=== PATIENT | female | born 1995 | race Two or more races ===

== ENCOUNTER 2020-01-20 13:17 | Emergency (ER) | payer OTHER ==
[2020-01-20 14:05] VITALS: BMI 35.0
--- NOTE | 2020-01-20 14:08 | PDOC ---
Rapid Medical Evaluation Time Seen by Provider: 01/20/20 13:58 Medical Evaluation: 01/20/20 14:01 This patient had a rapid evaluation in triage cc: chest pain x 2-3 days HPI: Patient reports G1Po, 25 weeks with mid chest pain that pierces through to back also reports itching and rash intermittently. Also reports shortness of breath PE: appears winded, lungs clear bilaterally heart regular rate, s1s2 ext: small swelling in ankles Orders: ekg This patient will proceed to main ed for further evaluation Discharge Disposition - Diagnosis Chest pain Qualifiers: Chest pain type: chest pain on breathing Qualified Code(s): R07.1 - Chest pain on breathing; R07.81 - Pleurodynia Qualifiers: Weeks of gestation: 26 weeks Qualified Code(s): Z3A.26 - 26 weeks gestation of - Referrals - Patient Instructions - Post Discharge Activity
--- NOTE | 2020-01-20 14:23 | PDOC ---
History of Present Illness - General Chief Complaint: Chest Pain Stated Complaint: CHEST PAIN/25 WKS PRG Time Seen by Provider: 01/20/20 13:58 History Source: Patient - History of Present Illness Initial Comments: 01/20/20 15:13 Ms. Gonzalez is a 24 y/o woman at 25 weeks gestation w/hx hypothyroidism p/w several days of intermittent squeezing chest pain and shortness of breath. She denies prior similar episodes or previous DVTs or PEs. She reports that her symptoms began approx 3-4 days ago and occur in brief intermittent episodes lasting 1-2 minutes. During them she describes squeezing chest pain that radiates to her back. 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 She has already had confirmatory US of the . She denies any change in pain, or onset of pain, with exertion. She denies any nausea, vomiting, dyspnea, weakness, dysuria , hematuria. Past History - Past Medical History Allergies/Adverse Reactions: Allergies Allergy/AdvReac Type Severity Reaction Status Date / Time No Known Allergies Allergy Verified 01/20/20 14:02 - Psycho Social/Smoking Cessation Hx Smoking History: Never smoked Information on smoking cessation initiated: No Hx Alcohol Use: No Drug/Substance Use Hx: No Review of Systems - Review of Systems Able to Perform ROS?: Yes Comments:: 01/20/20 15:17 ROS: GENERAL/CONSTITUTIONAL: No fever or chills. No weakness. HEAD, EYES, EARS, NOSE AND THROAT: No change in vision. No ear pain or discharge. No sore throat. CARDIOVASCULAR: No chest pain or shortness of breath RESPIRATORY: No cough, wheezing, or hemoptysis. GASTROINTESTINAL: No nausea, vomiting, diarrhea or constipation. GENITOURINARY: No dysuria, frequency, or change in urination. MUSCULOSKELETAL: No joint or muscle swelling or pain. No neck or back pain. SKIN: No rash NEUROLOGIC: No headache, vertigo, loss of consciousness, or change in strength/ sensation. ENDOCRINE: No increased thirst. No abnormal weight change HEMATOLOGIC/LYMPHATIC: No anemia, easy bleeding, or history of blood clots. ALLERGIC/IMMUNOLOGIC: No hives or skin allergy. *Physical Exam - Vital Signs Last Vital Signs Temp Pulse Resp BP Pulse Ox 97.8 F 93 H 17 103/61 99 01/20/20 14:02 01/20/20 14:02 01/20/20 14:02 01/20/20 14:02 01/20/20 14:02 - Physical Exam 01/20/20 15:17 PE: GENERAL: Awake, alert, and fully oriented, in no acute distress HEAD: No signs of trauma, normocephalic, atraumatic EYES: PERRLA, EOMI, sclera anicteric, conjunctiva clear ENT: Auricles normal inspection, hearing grossly normal, nares patent, oropharynx clear without exudates. Moist mucosa NECK: Normal ROM, supple, no lymphadenopathy, JVD, or masses LUNGS: No distress, speaks full sentences, clear to auscultation bilaterally HEART: Regular rate and rhythm, normal S1 and S2, no murmurs, rubs or gallops, peripheral pulses normal and equal bilaterally. ABDOMEN: Soft, nontender, normoactive bowel sounds. No guarding, no rebound. No masses EXTREMITIES : Normal inspection, Normal range of motion, no edema. No clubbing or cyanosis NEUROLOGICAL: Cranial nerves II through XII grossly intact. Normal speech, normal gait, no focal sensorimotor deficits SKIN: Warm, Dry, normal turgor, no rashes or lesions noted Heart Score/ECG Review - History History: Slightly suspicious - Electrocardiogram EKG: Normal - Age Age: </= 45 - Risk Factors Based on the list above the patient has:: No risk factors known - Troponin Troponin: </= normal limit - Score Heart Score - Total: 0 ED Treatment Course - LABORATORY CBC & Chemistry Diagram: 01/20/20 15:00 01/20/20 15:00 Medical Decision Making - Medical Decision Making 01/20/20 15:18 24F at 25 weeks gestation by US w/hx hypothyroidism p/w several days intermittent chest pain. Ddx includes ACS, although pain lasting several days, and not associated with exertion atypical. PE unlikely (PERC negative). MSK pain possible. Plan: CBC CMP EKG CXR Lipase Cardiac profile UA Urine culture Beta hcg quant Dispo: Likely discharge 01/20/20 15:50 CBC - wnl UA - negative CMP, hcg quant pending 01/20/20 16:25 CMP - wnl Hcg quant - 4129 Plan for discharge to supervisor [employer] for further evaluation of , given lower than expected hcg quant for 25 weeks gestation. Discharge - Discharge Information Problems reviewed: Yes Clinical Impression/Diagnosis: Chest pain Qualifiers: Chest pain type: chest pain on breathing Qualified Code(s): R07.1 - Chest pain on breathing Qualifiers: Weeks of gestation: 26 weeks Qualified Code(s): Z3A.26 - 26 weeks gestation of Condition: Stable Disposition: HOME - Admission No - Follow up/Referral - Patient Discharge Instructions Patient Printed Discharge Instructions: DI for Atypical Chest Pain Additional Instructions: You were seen in the ER for chest pain. Your bloodwork was normal, including your liver function. Please be sure to follow up with your supervisor framing mill as soon as possible, in the next 2-3 days. Follow up with your primary care physician as soon as possible as well, in the next 7 days. Return to the ER if you develop weakness, difficulty breathing, high fevers. - Post Discharge Activity
--- NOTE | 2020-01-20 15:04 | PDOC ---
*Physical Exam - Vital Signs Last Vital Signs Temp Pulse Resp BP Pulse Ox 97.8 F 93 H 17 103/61 98 01/20/20 14:02 01/20/20 14:02 01/20/20 14:02 01/20/20 14:02 01/20/20 14:34 Heart Score/ECG Review - ECG Impressions Comment:: 01/20/20 15:33 HR 75, NSR, no KAITLIN/STD/TWI ED Treatment Course - LABORATORY CBC & Chemistry Diagram: 01/20/20 15:00 01/20/20 15:00 Medical Decision Making - Medical Decision Making 01/20/20 15:03 24 y/o @ self-reported 25 weeks gestation with 3-4 days of chest pain Pain started suddenly while sitting and is sharp/squeezing, intermittent lasting 10-15 seconds, occurring both at night waking patient from sleep and during the day. No associated shortness of breath, lower extremity swelling palpitations. VS unremarkable No murmur on PE PERC Negative EKG with no acute ischemic change as documented in EKG section of EMR Will r/o ACS w/Troponin x1, d/c to OB 01/20/20 17:13 Troponin (-) x1 Other labs unremarkable including LFT's - though low clinical suspicion for pre- eclamptic picture D/c to OB Discharge - Discharge Information Problems reviewed: Yes Clinical Impression/Diagnosis: Chest pain Qualifiers: Chest pain type: chest pain on breathing Qualified Code(s): R07.1 - Chest pain on breathing Qualifiers: Weeks of gestation: 26 weeks Qualified Code(s): Z3A.26 - 26 weeks gestation of Condition: Stable Disposition: HOME - Admission No - Follow up/Referral - Patient Discharge Instructions Patient Printed Discharge Instructions: DI for Atypical Chest Pain Additional Instructions: You were seen in the ER for chest pain. Your bloodwork was normal, including your liver function. 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 Follow up with your primary care physician as soon as possible as well, in the next 7 days. Return to the ER if you develop weakness, difficulty breathing, high fevers. - Post Discharge Activity
[2020-01-20 15:29] LABS: BASO % 0.9 % (0-2.0); EOS % 1.5 % (0-4.5); HEMATOCRIT 32.6 % (32.4-45.2); HEMOGLOBIN 11.3 GM/dL (10.7-15.3); LYMPH % 20.7 % (8-40); MCH 30.5 pg (25.7-33.7); MCHC 34.6 g/dl (32.0-36.0); MEAN CELL VOLUME 87.9 fl (80-96); MEAN PLT VOLUME 8.9 fl (7.5-11.1); MONO % 6.6 % (3.8-10.2); NEUT % 70.3 % (42.8-82.8); PLATELET COUNT 219 K/MM3 (134-434); RBC 3.71 M/mm3 (3.60-5.2); RDW 15.4 % (11.6-15.6); WHITE BLOOD COUNT 9.5 K/mm3 (4.0-10.0)
[2020-01-20 15:37] LABS: EPI CELLS 3.7 /HPF (0-5/HPF); HYALINE CASTS 0 /lpf (0-8); URINE APPEARANCE CLEAR; URINE BACTERIA 117.3 /hpf (NEGATIVE); URINE BILIRUBIN NEGATIVE (NEGATIVE); URINE COLOR YELLOW; URINE GLUCOSE (UA) NEGATIVE (NEGATIVE); URINE KETONE NEGATIVE (NEGATIVE); URINE LEUK ESTERASE TRACE (NEGATIVE); URINE NITRITE NEGATIVE (NEGATIVE); URINE PROTEIN NEGATIVE (NEGATIVE); URINE RBC 1 /hpf (0-4); URINE UROBILINOGEN 0.2 mg/dL (0.2-1.0); URINE WBC 4 /hpf (0-5)
[2020-01-20 16:08] LABS: ALK PHOS 51 U/L (45-117); BILIRUBIN,TOTAL 0.5 mg/dL (0.2-1); BLOOD UREA NITROGEN 6.3 mg/dL (7-18); CALCIUM 8.5 mg/dL (8.5-10.1); CHLORIDE 106 mmol/L (98-107); CO2 22 mmol/L (21-32); CREATININE 0.5 mg/dL (0.55-1.3); GLUCOSE,RANDOM 76 mg/dL (74-106); LIPASE 114 U/L (73-393); SGPT/ALT 24 U/L (13-61); SODIUM 137 mmol/L (136-145)
--- NOTE | 2020-01-20 16:14 | PDOC ---
Attending Attestation - Resident Resident Name: Darrell Duenas - HPI HPI: 01/20/20 16:03 Pt presents to the ED complaining of a two day history of intermittent chest pain without shortness of breath. PAtient is 25 weeks . currently chest pain free. Denies fever or cough. - Physicial Exam PE: 01/20/20 16:14 Agree with resident exam. PAtient is well appearing and in no acute distress. Lungs are clear. CV: rrr no m/r/g. Abdomen: gravid, non tender non distended. - Medical Decision Making 01/20/20 16:15 Pt presents to the eD complaining of intermittent chest pain. PERC negative. EKG is normal and patient is extremely low risk for cardiac disease. Will check labs and cardiac enzymes, likely discharge home if negative.
[2020-01-20 16:16] LABS: ANION GAP 9 MMOL/L (8-16); POTASSIUM 4.4 mmol/L (3.5-5.1); SGOT/AST 25 U/L (15-37)
[2020-01-20 18:48] VITALS: BP 100/66; PULSE 77; TEMP 98.4
--- NOTE | 2020-01-20 19:31 | CONSULT ---
Past Medical History, Laborist - Primary Care Physician PCP:: Rowena Baez - Admission Chief Complaint: chest pain. pruritus History of Present Illness: Patient came to the ED with c/o chest pain.She is 25 weeks . Full W/U in ED w chest xray, EKG, treponine. Totally neg. Chest pain is worst at night. Most likely reflux. Skin pruritus - mild. History Source: Patient, Medical Record Limitations to Obtaining History: No Limitations - Past Medical History HOOP RIVETER: Denies/None, Syncope Pulmonary: Denies/None Gastrointestinal: Denies/None Hepatobiliary: Denies/None Renal/: Denies/None Reproductive: Denies/None ...: 1 ...Para: 0 ...Term: 0 ...: 0 ...Spon : 0 ...Induced : 0 ...LMP: 07/28/19 ... Weeks Gestation by Dates: 25.1 ...EDC by Dates: 05/03/20 Heme/Onc: Denies/None Infectious Disease: Denies/None Musculoskeletal: Denies/None Rheumatology: Denies/None ENT: Denies/None Endocrine: Denies/None Dermatology: Denies/None - Past Surgical History Past Surgical History: Yes: None - Smoking History Smoking history: Never smoked - Alcohol/Substance Use Hx Alcohol Use: No Review of Systems - Review of Systems Constitutional: reports: No Symptoms Eyes: reports: No Symptoms HENT: reports: No Symptoms Neck: reports: No Symptoms Cardiovascular: reports: No Symptoms Respiratory: reports: No Symptoms Gastrointestinal: reports: No Symptoms Genitourinary: reports: No Symptoms Breasts: reports: No Symptoms Reported Musculoskeletal: reports: No Symptoms Integumentary: reports: No Symptoms Neurological: reports: No Symptoms Endocrine: reports: No Symptoms Hematology/Lymphatic: reports: No Symptoms Psychiatric: reports: No Symptoms Physical Exam - Maternity Vital Signs: Vital Signs Temperature 98.4 F 01/20/20 17:17 Pulse Rate 77 01/20/20 17:17 Respiratory Rate 18 01/20/20 17:17 Blood Pressure 100/66 01/20/20 17:17 O2 Sat by Pulse Oximetry (%) 98 01/20/20 16:48 Constitutional: Yes: Well Nourished, No Distress, Calm Eyes: Yes: WNL, Conjunctiva Clear, EOM Intact HENT: Yes: WNL, Atraumatic, Normocephalic Neck: Yes: WNL, Supple, Trachea Midline Cardiovascular: Yes: WNL, Regular Rate and Rhythm Breast(s): Yes: WNL - Abdominal Exam/OB Fundal Height: 26 Number of Fetuses: Single Contractions: No Monitor Mode: External Heart Rate Location: LUQ Accelerations: None Decelerations: None - Vaginal Exam/OB Vaginal Bleediing: No Speculum Exam: No Dilatation (cm): deferr Amniotic Membrane Status: Intact - Physical Exam Musculoskeletal: Yes: WNL Extremities: Yes: WNL Integumentary: Yes: WNL ...Motor Strength: WNL Psychiatric: Yes: WNL - Labs Lab Results: CBC, BMP 01/20/20 15:00 01/20/20 15:00 Problem List - Problems (1) with 25 completed weeks gestation Code(s): Z3A.25 - 25 WEEKS GESTATION OF (2) Pruritus Code(s): L29.9 - PRURITUS, UNSPECIFIED (3) Chest pain Code(s): R07.9 - CHEST PAIN, UNSPECIFIED Qualifiers: Chest pain type: chest pain on breathing Qualified Code(s): R07.1 - Chest pain on breathing; R07.81 - Pleurodynia Assessment/Plan Chest pain - neg w/u. Try antacid. Tylenol PM for itch. F/U w PCP.
--- NOTE | 2020-01-21 10:34 | EKG ---
Test Reason : Blood Pressure : / mmHG Vent. Rate : 075 BPM Atrial Rate : 075 BPM P-R Int : 134 ms QRS Dur : 070 ms QT Int : 368 ms P-R-T Axes : 011 061 028 degrees QTc Int : 410 ms POOR DATA QUALITY, INTERPRETATION MAY BE ADVERSELY AFFECTED NORMAL SINUS RHYTHM WITH SINUS ARRHYTHMIA POSSIBLE LEFT ATRIAL ENLARGEMENT BORDERLINE ECG NO PREVIOUS ECGS AVAILABLE Confirmed by Pantera Stearns MD ([id number]) on 01/21/2020 10:34:40 AM Referred By: Confirmed By:Pantera Stearns MD
== END 2020-01-20 19:40 | disposition home or self-care (01) ==
LOC: JER 13:17
DX: O99.89 Other specified diseases and conditions complicating pregnancy, childbirth and the puerperium (principal); R07.81 Pleurodynia; L29.8 Other pruritus; Z3A.25 25 weeks gestation of pregnancy
CPT/HCPCS: 36415; 71045-TC-FY; 80053; 81003; 82550; 83690; 84484; 84702; 85025; 87086; 93005; 93010; 99283-25

== ENCOUNTER → 2022-01-24 | Day surgery (SDC) | payer OTHER ==
[2022-01-21 13:40] VITALS: BMI 36.8
[~2022-01-24] MED LIST: ACETAMINOPHEN 325 MG TABLET (FP) PO PRN; FERRIC SUBSULFATE 500 ML BOTTLE TP ONE; IBUPROFEN 400 MG TABLET (FP) PO PRN; MIDAZOLAM HCL 2 MG/2 ML SINGLE DOSE VIAL ONE; ONDANSETRON 4 MG/2 ML VIAL IVPUSH ONE; ONDANSETRON 4 MG/2 ML VIAL ONE; PROPOFOL 20 ML ONE; ROCURONIUM BROMIDE 50 MG/5 ML SYRINGE ONE; SILVER NITRATE 75% APPLIC STCK 1 PKT EACH TP ONE
[2022-01-24 14:05] VITALS: TEMP 97.1
[2022-01-24 15:54] VITALS: BP 125/72; PULSE 68
== END | disposition home or self-care (01) ==
LOC: JASU-SURG 04:44
PROVIDERS: ATTEND Obstetrics & Gynecology
PROC: 0UB98ZZ Excision of Uterus, Via Natural or Artificial Opening Endoscopic (ICD-10-PCS; principal; 2022-01-24 10:30)
PROC: 0UDB8ZX Extraction of Endometrium, Via Natural or Artificial Opening Endoscopic, Diagnostic (ICD-10-PCS; 2022-01-24 10:30)
DX: D25.9 Leiomyoma of uterus, unspecified (principal); N84.0 Polyp of corpus uteri
CPT/HCPCS: 36415; 84703; 86769; 86850; 86900; 86901; 88305-TC; 94760